=== PATIENT | female | born 1980 | race Asian ===

== ENCOUNTER → 2020-09-04 | Outpatient (CLI) | payer OTHER ==
[~2020-09-04] MED LIST: ACET-1600 PO; CYAN1TAB29 PO; MELO7.5T31 PO; OMEP-110 PO; TRIA10.8 NS
== END | disposition home or self-care (01) ==
LOC: STAR 15:47
PROVIDERS: ATTEND Specialist
DX: Z01.812 Encounter for preprocedural laboratory examination (principal); N92.0 Excessive and frequent menstruation with regular cycle; D25.0 Submucous leiomyoma of uterus; Z20.828 Contact with and (suspected) exposure to other viral communicable diseases
CPT/HCPCS: 87635

== ENCOUNTER 2020-09-08 10:16 | Day surgery (SDC) | payer OTHER ==
[~2020-09-08] VITALS: Ht 157.5 cm; Wt 63.5 kg
[2020-09-08] MEDS ORDERED: MIDAZOLAM 1 MG/ML, 2ML ONE (10:59)
[2020-09-08] MEDS ORDERED: DEXAMETHASONE 4 MG/ML, 1ML ONE ×2 (11:00)
[2020-09-08] MEDS ORDERED: PROPOFOL 10 MG/ML, 20ML ONE (11:00)
[2020-09-08] MEDS ORDERED: ONDANSETRON 2MG/ML, 2ML ONE (11:00)
[2020-09-08] MEDS ORDERED: CEFAZOLIN 1,000 MG ONE (11:00)
[2020-09-08] MEDS ORDERED: FENTANYL PF 250 MCG/5ML ONE (11:00)
[2020-09-08 11:06] VITALS: BP 106/70
[2020-09-08] MEDS ORDERED: CHLORHEXIDINE 15 ML UDC ONE (11:14)
[2020-09-08] MEDS ORDERED: LACTATED RINGERS 1,000 ML IV SCH (11:30)
[2020-09-08] MEDS ORDERED: CHLORHEXIDINE 15 ML UDC MM ONE (11:30)
[2020-09-08 11:46] LABS: HCG UR SG 1.018 (1.003-1.030)
[2020-09-08] MEDS ORDERED: BUPIVACAINE/PF 0.25% ONE (11:57)
[2020-09-08] MEDS ORDERED: VASOPRESSIN 20 UNIT/ML, 1ML ONE (11:57)
[2020-09-08] MEDS ORDERED: KETOROLAC 30 MG/1 ML ONE (12:25)
[2020-09-08] MEDS ORDERED: PROMETHAZINE 25 MG/ML, 1ML IVPush PRN (12:30)
[2020-09-08] MEDS ORDERED: MEPERIDINE/PF 25MG/0.5ML IVPush PRN (12:30)
[2020-09-08] MEDS ORDERED: LABETALOL 5MG/ML, 20ML IV PRN (12:30)
[2020-09-08] MEDS ORDERED: morphine SULFATE 10 MG/ML, 1ML IVPush PRN (12:30)
[2020-09-08] MEDS ORDERED: ACETAMINOPHEN 325 MG TABLET PO PRN (12:30)
[2020-09-08] MEDS ORDERED: OXYcodone 5 MG/5 ML ORAL.SOL UDC PO PRN (12:30)
[2020-09-08] MEDS ORDERED: hydrALAzine 20 MG/ML, 1ML IV PRN (12:30)
[2020-09-08] MEDS ORDERED: FENTANYL PF 100 MCG/2ML IV PRN (12:30)
[2020-09-08] MEDS ORDERED: HYDROmorphone 1 MG/ML, 1ML INJ IVPush PRN (12:30)
[2020-09-08] MEDS ORDERED: HALOPERIDOL 5 MG/ML IV PRN (12:30)
== END 2020-09-08 15:00 | disposition home or self-care (01) ==
LOC: OUT 10:16
PROVIDERS: ATTEND Specialist
DX: N92.0 Excessive and frequent menstruation with regular cycle (principal); D25.9 Leiomyoma of uterus, unspecified; N85.8 Other specified noninflammatory disorders of uterus; K21.9 Gastro-esophageal reflux disease without esophagitis; Z88.8 Allergy status to other drugs, medicaments and biological substances; Z98.51 Tubal ligation status; Z98.890 Other specified postprocedural states; Z96.641 Presence of right artificial hip joint; Z79.899 Other long term (current) drug therapy; Z72.89 Other problems related to lifestyle
CPT/HCPCS: 58561; 81025; 88305; J0690; J1100; J1885; J2250; J2405; J2704; J3010; J7120